=== PATIENT | female | born 1940 | race Caucasian/White ===

== ENCOUNTER 2017-11-09 01:21 | Inpatient (IN) ==
[2017-11-09] MEDS ORDERED: Naloxone 0.4 MG/ML INJ IVP PRN (01:53)
--- NOTE | 2017-11-09 03:35 | Internal Med History&Physical ---
Date of Encounter: 11/09/17 Time of Encounter: 03:15 Assessment and Plan (1) Chest pain Current visit: Yes Status: Acute Precordial chest pain. Likely from rapid A. fib. Now improved. Observation and trend troponins. Telemetry. Control A. fib. Qualifiers: Chest pain type: precordial pain Qualified Code(s): R07.2 - Precordial pain (2) Atrial fibrillation Current visit: Yes Status: Acute A. fib with rapid ventricular response on presentation. Now improved after patient was started on IV Cardizem drip. Currently in sinus rhythm. We will wean off drip and place patient on usual home medications. Monitor with telemetry. High risk for complications due to use of intravenous Cardizem drip. On anticoagulation with Coumadin and INR is therapeutic. Qualifiers: Atrial fibrillation type: paroxysmal Qualified Code(s): I48.0 - Paroxysmal atrial fibrillation (3) Coronary artery disease Current visit: Yes Status: Chronic Patient with history of coronary artery disease and prior CABG. We will resume home medications. Presented with chest pain. Management as above. Qualifiers: Coronary Disease-Associated Artery/Lesion type: [place] artery [place] vs. transplanted heart: [place] heart Associated angina: angina presence unspecified Qualified Code(s): I25.10 - Atherosclerotic heart disease of [place] coronary artery without angina pectoris (4) Diabetes mellitus Current visit: Yes Status: Chronic Patient with history of diabetes. Will place patient on a diabetic diet. Monitor blood sugars. Sliding scale insulin. Qualifiers: Diabetes mellitus type: type 2 Diabetes mellitus complication status: with kidney complications Diabetes mellitus complication detail: with chronic kidney disease Diabetes mellitus jail insulin use: without long term care administrator use Chronic kidney disease stage: stage 3 (moderate) Qualified Code(s): E11.22 - Type 2 diabetes mellitus with diabetic chronic kidney disease; N18.3 - Chronic kidney disease, stage 3 (moderate); N18.3 - Chronic kidney disease, stage 3 (moderate) (5) Essential hypertension Current visit: Yes Status: Acute (6) COPD (chronic obstructive pulmonary disease) Current visit: Yes Status: Chronic Patient with history of COPD. Not in acute exacerbation but patient does have bilateral wheezing. Will treat with bronchodilators Qualifiers: COPD type: unspecified COPD Qualified Code(s): J44.9 - Chronic obstructive pulmonary disease, unspecified (7) DVT prophylaxis Current visit: Yes Status: Acute On Coumadin Internal Medicine - H&P: HPI Chief complaint: Chest pain Admitted From: Emergency Dept ([facility]) Plans for Post Hospital Care: Home History of present illness: Ms. Horne is a 77 year old female patient with history of diabetes mellitus, coronary artery disease status post CABG, atrial fibrillation, hypertension, COPD, presented to the ER at [facility] complaining of chest pain. Her pain began at 4 PM yesterday evening. She also was having palpitations associated with it. She describes the pain as central in location and radiating up her jaw and to both her arms. She describes it as the worst chest pain she has ever had. In the ER she was noted to be in atrial fibrillation with rapid ventricular response. She was given Cardizem intravenously and then started on Cardizem drip with improvement in her heart rate. This also seemed to ease her pain and presently the pain has subsided. She does have chronic cough related to her chronic smoking history. No fever or chills. No nausea or vomiting. No dizziness or lightheadedness. Past Med Surg Social Fam HX - Past Medical History Attestation: Yes The following information was validated with the patient. Medical history: asthma, atrial fibrillation, COPD, coronary artery disease, diabetes, hypertension Psychiatric history: anxiety - Past Surgical History Surgical History: appendectomy, cholecystectomy, coronary bypass (CABG), hysterectomy, pacemaker - Social History Smoking Status: Current every day smoker Packs per day: 0.5 Smokeless Tobacco Status: No Alcohol use: none Drug use: none - Additional Family History Additional family history: Reviewed and found to be noncontributory at this time Internal Medicine - H&P: Meds 3 Allergy/AdvReac Type Severity Reaction Status Date / Time azithromycin [From Zithromax] Allergy Anaphylaxis Verified 11/09/17 02:14 glimepiride Allergy Confusion Verified 11/09/17 02:14 lidocaine [From Lidoderm] Allergy unknown Verified 11/09/17 02:14 Macrolide Antibiotics Allergy unknown Verified 11/09/17 02:14 Sulfa (Sulfonamide Allergy unknown Verified 11/09/17 02:14 Antibiotics) clindamycin AdvReac edema Verified 11/09/17 02:14 fluticasone AdvReac Palpitation Verified 11/09/17 02:14 [From Advair Diskus] s salmeterol AdvReac Palpitation Verified 11/09/17 02:14 [From Advair Diskus] s All Systems PM: A 10-system review of systems was performed and is negative for pertinent findings except as documented above in the HPI. - Constitutional Constitutional: no chills, no fever(s), no night sweats - EENT Eyes: no change in vision, no discharge, no pain, no photophobia Ears: no ear discharge, no ear pain, no tinnitus Nose, mouth and throat: no dysphagia, no nasal discharge, no neck pain, no sore throat - Cardiovascular Cardiovascular ROS IM: no chest pain, no diaphoresis, no dyspnea, no lightheadedness, no palpitations, no syncope - Respiratory Respiratory: no cough, no dyspnea, no wheezing, no excessive phlegm production - Gastrointestinal Gastrointestinal: no abdominal pain, no diarrhea, no hematemesis, no hematochezia, no melena, no nausea, no vomiting - Genitourinary Genitourinary: no change in urinary stream, no dysuria, no flank pain, no hematuria - Musculoskeletal Musculoskeletal ROS IM: no numbness, no tingling - Integumentary Integumentary IM: no rash, no unusual bruising - Neurological Neurological ROS: no confusion, no convulsions, no focal weakness, no numbness, no tingling, no tremor(s) - Hematologic/Lymphatic Hematologic/Lymphatic: no easy bruising - Constitutional Vitals: Temp Pulse Resp BP Pulse Ox 98.6 F 120 18 91/73 100 11/09/17 01:53 11/09/17 01:53 11/09/17 01:53 11/09/17 01:53 11/09/17 01:53 General appearance: Present: cooperative, A&O X 3, answers questions appropriately - Neck Neck exam general surgery: Present: supple, trachea midline. Absent: lymphadenopathy - Respiratory Respiratory exam: Present: prolonged expiratory phase, wheezes. Absent: accessory muscle use, rales, rhonchi - Cardiovascular Cardiovascular exam: Present: RRR, +S1, +S2. Absent: diastolic murmur, gallop, rubs, systolic murmur - GI/Abdominal GI/Abdominal exam: Present: normal bowel sounds, soft, no peritoneal signs. Absent: distended, tenderness - Extremities Exam Extremities exam: Present: warm, radial pulses palpable and symmetrical. Absent : calf tenderness, cyanotic, pedal edema - Neurological Exam Neurological exam: Present: CN II-XII intact, oriented X3, no focal deficits. Absent: pronater drift, facial droop, speech deficit Internal Med - H&P Results - Labs Labs: INR 2.4, potassium 3.4, creatinine 1.9, troponin 0.085 - EKG Data EKG comments: 11/09/17 03:49 Atrial fibrillation with right bundle-branch block
[2017-11-09] MEDS ORDERED: D5% in Water 1,000 ML IVC PRN (03:54)
[2017-11-09] MEDS ORDERED: Dextrose Gel 15 GM/37.5 ML TUBE PO PRN ×2 (03:54)
[2017-11-09] MEDS ORDERED: *HR* Dextrose 50 % in Water (Syg) 50 ML SYRINGE IVP PRN (03:54)
[2017-11-09 04:00] LABS: Basophils % 0.2 %; Eosinophils # 0.1 K/mcL (0.0-0.6); Eosinophils % 0.8 %; Hemoglobin 11.6 g/dL (11.5-15.4); Immature Granulocytes % 0.3 % (0-4); Lymphocytes # 2.5 K/mcL (0.6-4.6); Lymphocytes % 26.6 %; Mean Corpuscular HGB Conc 32.2 g/dL (31.6-35.5); Mean Corpuscular Hemoglobin 27.8 pg (28.0-33.3); Mean Corpuscular Volume 86.1 fL (83.0-100.0); Mean Platelet Volume 9.5 fL (9.4-12.4); Monocytes # 0.6 K/mcL (0.0-1.3); Monocytes % 6.1 %; Neutrophils # 6.2 K/mcL (1.6-8.9); Platelet Count 275 K/mcL (140-400); Red Blood Count 4.18 M/mcL (3.82-4.97); Red Cell Distribution Width 15.7 % (11.5-14.5)
[2017-11-09 04:08] LABS: INR 2.6; Prothrombin Time 29.1 Seconds (9.4-12.1)
[2017-11-09 04:10] LABS: Hemoglobin A1C 5.4 %
[2017-11-09] MEDS ORDERED: Ipratropium/Albuterol Neb 3 ML IH PRN (04:12)
[2017-11-09 05:10] LABS: Calcium 8.4 mg/dL (8.6-10.3); Potassium 3.5 mEq/L (3.5-5.1)
[2017-11-09] MEDS: Tiotropium 18 MCG inhalation IH SCH (08:09)
[2017-11-09] MEDS: Benzonatate 100 MG CAPSULE PO SCH ×3 (09:07→23:05)
[2017-11-09] MEDS: Loratadine 10 MG TABLET PO SCH (09:07)
[2017-11-09] MEDS: Insulin LISPRO 300 UNITS/3 ML VIAL SQ SCH ×4 (09:07→23:02)
--- NOTE | 2017-11-09 09:58 | Electrocardiograph Report ---
[place] [id number] Test Date: 2017-11-09 Pat Name: Danielle Horne Department: 111 Room: 2NE24 Gender: F Residential Care Facility Manager: RAW : 1940 Requested By: Ishan Lubin Order Number: [id number] Reading MD: Zaria Del Real Measurements Intervals [place] Rate: 60 P: 119 DE: 151 QRS: -54 QRSD: 121 T: 82 QT: 442 QTc: 444 Interpretive Statements SINUS RHYTHM POSSIBLE RIGHT VENTRICULAR CONDUCTION DELAY LEFT ANTERIOR FASCICULAR BLOCK LEFT VENTRICULAR HYPERTROPHY AND ST-T CHANGE INFERIOR MYOCARDIAL INFARCTION, OF INDETERMINATE AGE WITH POSTERIOR EXTENSION Electronically Signed On 11-09-2017 9:57:31 EST by Zaria Del Real
[2017-11-09] MEDS: Ipratropium/Albuterol Neb 3 ML IH SCH ×3 (10:11→20:33)
[2017-11-09] MEDS: Isosorbide MONOnitrate (24 HR) 30 MG TAB.ER.24H PO SCH (10:51)
[2017-11-09] MEDS: Metoprolol XL (24 HR) Succ 25 MG TAB.ER.24H PO SCH ×2 (10:51→21:35)
--- NOTE | 2017-11-09 11:32 | Cardiology Consult Note ---
<Yuly Keenan Marilyn - Last Filed: 11/09/17 11:49> Date of Encounter: 11/09/17 Time of Encounter: 10:30 Assessment and Plan (1) NSTEMI (non-ST elevated myocardial infarction) Status: Acute Troponin 0.085, now 4.68. Ischemic ECG changes. Patient reports typical chest pain symptoms prior to admission, now pain free. 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 Check echocardiogram. No heparin gtt due to therapeutic INR. Patient not a candidate for cardiac rehab at this time. Continue plavix, nitrates, statin, and betablocker. Will continue to follow. (2) Atrial fibrillation Status: Acute Hx of paroxysmal atrial fibrillation, pt reports was diagnosed 8 years ago. On coumadin for AC. Episode of RVR at [facility] ED, now in NSR. Continue betablocker. Goal INR 2-3, recommend pharmacy to dose as inpt. Continue coumadin for now as patient is declining LHC. Qualifiers: Atrial fibrillation type: paroxysmal Qualified Code(s): I48.0 - Paroxysmal atrial fibrillation (3) Coronary artery disease Status: Chronic Hx of CAD s/p CABG. Patient reports PCI (x total LHC) between Jul- at [facility] and [place]. Request records. Asa, statin, betablocker. Qualifiers: Coronary Disease-Associated Artery/Lesion type: [place] artery [place] vs. transplanted heart: [place] heart Associated angina: angina presence unspecified Qualified Code(s): I25.10 - Atherosclerotic heart disease of [place] coronary artery without angina pectoris Discussion w patient/family: The assessment and plan as outlined above was discussed with the patient and/or family members who expressed understanding and agreement. All questions were answered. Thank you for involving us in the care of your patient. Please call with any questions. History of Present Illness Consult date: 11/09/17 Requesting physician: Ishan Lubin Consult reason: NSTEMI Chief complaint: Chest pain, afib History of present illness: Ms. Horne is a 77 year old female with PMHx significant for DMII, CAD s/p CABG ,PCI, AF (Coumadin), HTN, COPD (home o2 4-5 l/m), current smoker, PPM, and CVA who presented to [facility] ED with complaints of palpitations associated with chest pressure with radiation down bilateral arms and neck. Patient reports she felt tired and fatigued for 3 days prior to event and "felt like afib was coming on." She was then transferred to [facility] for further evaluation. Upon arrival to ED she was in atrial fibrillation with RVR and started on IV cardizem gtt. She is pain free upon exam and is in NSR. Past Med Surg Social Fam HX - Past Medical History Attestation: Yes The following information was validated with the patient. Source: patient Medical history: asthma, atrial fibrillation, COPD, coronary artery disease, diabetes, hypertension Psychiatric history: anxiety - Past Surgical History Surgical History: angioplasty/stent, appendectomy, cholecystectomy, coronary bypass (CABG), hysterectomy, pacemaker - Social History Smoking Status: Current every day smoker Packs per day: 0.5 Smokeless Tobacco Status: No Alcohol use: none Drug use: none Medications and Allergies Atorvastatin [Lipitor] 40 mg PO DAILY 11/09/17 [History] Benzonatate [Tessalon] 100 mg PO TID PRN 11/09/17 [History] Clopidogrel [Plavix] 75 mg PO DAILY 11/09/17 [History] Dicyclomine [Bentyl] 10 mg PO QID 11/09/17 [History] Esomeprazole Magnesium [Nexium 24Hr] 40 mg PO DAILY 11/09/17 [History] Ferrous Sulfate [Iron] 325 mg PO DAILY 11/09/17 [History] Fluticasone Propionate Nasal [Flonase] 1 spr NS DAILY 11/09/17 [History] Fluticasone Propionate [Flovent Diskus] 1 puff IH BID 11/09/17 [History] Furosemide [Lasix] 40 mg PO DAILY 11/09/17 [History] HYDROcodone/Acet 5/325 mg [[place] 5-325 mg] 1 tab PO BID PRN 11/09/17 [History] Ipratropium/Albuterol Neb [Duoneb] 3 ml IH Q6HR 11/09/17 [History] Loratadine [Allergy Relief] 10 mg PO DAILY 11/09/17 [History] Metformin HCl [Fortamet] 500 mg PO BID 11/09/17 [History] Montelukast [Singulair] 10 mg PO DAILY 11/09/17 [History] Nitroglycerin [Nitrostat] 0.4 mg SL Q5M PRN 11/09/17 [History] Roflumilast [Daliresp] 500 mcg PO DAILY 11/09/17 [History] Tiotropium [Spiriva] 18 mcg IH DAILY 11/09/17 [History] Warfarin [Coumadin] 2.5 mg PO [id number] 11/09/17 [History] Warfarin [Coumadin] 5 mg PO SUTH 11/09/17 [History] GuaiFENesin Liq [Robitussin Liq] 200 mg PO Q6HR PRN #15 udc 11/12/17 [Rx] Isosorbide MONOnitrate (24 HR) [Imdur] 60 mg PO DAILY #60 tab.er.24h 11/12/17 [ Rx] LORazepam [Ativan] 0.5 mg PO TID PRN 5 Days #15 tablet 11/12/17 [Rx] Metoprolol XL (24 HR) Succ [Toprol Xl] 50 mg PO BID #60 tab.er.24h 11/12/17 [Rx] amLODIPine [Norvasc] 5 mg PO DAILY #30 tablet 11/12/17 [Rx] hydrALAZINE [HydrALAZINE] 25 mg PO Q8HR #90 tablet 11/12/17 [Rx] predniSONE [PredniSONE] See Taper PO TAPER #39 tablet 11/12/17 [Rx] 3 Allergy/AdvReac Type Severity Reaction Status Date / Time azithromycin [From Zithromax] Allergy Anaphylaxis Verified 11/09/17 13:41 glimepiride Allergy Confusion Verified 11/09/17 13:41 lidocaine [From Lidoderm] Allergy unknown Verified 11/09/17 13:41 Macrolide Antibiotics Allergy unknown Verified 11/09/17 13:41 Sulfa (Sulfonamide Allergy unknown Verified 11/09/17 13:41 Antibiotics) clindamycin AdvReac edema Verified 11/09/17 13:41 fluticasone AdvReac Palpitation Verified 11/09/17 13:41 [From Advair Diskus] s salmeterol AdvReac Palpitation Verified 11/09/17 13:41 [From Advair Diskus] s All Systems Review: A 10-system review of systems was performed and is negative for pertinent findings except as documented above in the HPI. - Cardiovascular Cardiovascular: as per HPI Physical Examination Vital Signs, Last 4 Hours Temp Pulse Resp BP Pulse Ox 11/09/17 11:17 98.2 F 75 16 160/106 92 11/09/17 10:15 16 98 11/09/17 09:18 47 95 146/59 95 General: Conversant, No Apparent Distress HEENT: Atraumatic, Normocephaly Cardiac: Reg Rate and Rhythm, Normal S1 and S2 Lungs: Other (coarse breath sounds throughout) Neuro: Alert and responsive Abdomen: Soft Skin: No rashes noted on visualized skin Musculoskeletal: No Chest Wall Tenderness Extremities: Other (BLE edema, L>R. ) Results 11/09/17 03:49 11/09/17 03:49 Lab Results 11/09/17 11/09/17 11/09/17 03:49 03:49 03:49 WBC 9.5 Hgb 11.6 Hct 36.0 Plt Count 275 INR 2.6 Sodium 137 Potassium 3.5 Chloride 98 Carbon Dioxide 30 H BUN 44 H Creatinine 1.64 H Glucose 110 H Calcium 8.4 L Troponin I 11/09/17 11/09/17 03:49 10:11 WBC Hgb Hct Plt Count INR Sodium Potassium Chloride Carbon Dioxide BUN Creatinine Glucose Calcium Troponin I 4.68 H* 4.42 H* Active Medications Hydrocodone Bitart/Acetaminophen ([place] 5-325 Mg) 1 tab PO Q8HR PRN PRN Reason: Pain Stop: 05/11/18 10:57 Albuterol/Ipratropium (Duoneb) 3 ml IH [id number] PRN; Protocol PRN Reason: Shortness Of Breath/Wheezing Stop: 05/11/18 04:13 Albuterol/Ipratropium (Duoneb) 3 ml IH [id number] OSVALDO Stop: 05/11/18 10:01 Last Admin: 11/09/17 10:11 Dose: 3 ml Atorvastatin Calcium (Lipitor) 40 mg PO QPM OSVALDO Stop: 05/11/18 18:01 Benzonatate (Tessalon) 100 mg PO TID OSVALDO Stop: 05/11/18 09:01 Last Admin: 11/09/17 09:07 Dose: 100 mg Clopidogrel Bisulfate (Plavix) 75 mg PO DAILY OSVALDO Stop: 05/11/18 09:01 Last Admin: 11/09/17 09:07 Dose: 75 mg Dextrose/Water (Dextrose 50% (Syg)) 25 ml IVP AD PRN PRN Reason: Hypoglycemia Stop: 05/11/18 03:55 Dicyclomine HCl (Bentyl) 10 mg PO QID [facility] Stop: 05/11/18 09:01 Last Admin: 11/09/17 09:07 Dose: 10 mg Ferrous Sulfate (Ferrous Sulfate) 325 mg PO DAILY OSVALDO Stop: 05/11/18 09:01 Last Admin: 11/09/17 09:07 Dose: 325 mg Diltiazem HCl 125 mg/ Sodium (Chloride) 125 mls @ 5 mls/hr IVC .Q24H OSVALDO; 5 MG/ HR PRN Reason: Protocol Stop: 05/11/18 02:01 Last Admin: 11/09/17 02:32 Dose: 5 mg/hr, 5 mls/hr Dextrose (Dextrose 5%) 1,000 mls @ 100 mls/hr IVC .Q10H PRN PRN Reason: HYPOGLYCEMIA Stop: 05/11/18 03:55 Insulin Human Lispro (Humalog) 0 units SQ HS OSVALDO PRN Reason: Protocol Stop: 05/11/18 21:01 Insulin Human Lispro (Humalog) 0 units SQ TIDAC OSVALDO PRN Reason: Protocol Stop: 05/11/18 07:31 Last Admin: 11/09/17 09:07 Dose: 2 units Isosorbide Mononitrate (Imdur) 30 mg PO DAILY [facility] Stop: 05/11/18 09:01 Last Admin: 11/09/17 10:51 Dose: 30 mg Loratadine (Claritin) 10 mg PO DAILY [facility] PRN Reason: Protocol Stop: 05/11/18 09:01 Last Admin: 11/09/17 09:07 Dose: 10 mg Metoprolol Succinate (Toprol Xl) 25 mg PO BID [facility] Stop: 05/11/18 09:01 Last Admin: 11/09/17 10:51 Dose: Not Given Montelukast Sodium (Singulair) 10 mg PO QPM [facility] Stop: 05/11/18 18:01 Naloxone HCl (Narcan) 0.4 mg IVP Q2MIN PRN PRN Reason: Opioid Reversal Stop: 05/11/18 01:54 Pharmacy Profile Note (Patient Taking Own Medication) 1 each PO DAILY [facility] Stop: 05/11/18 09:01 Last Admin: 11/09/17 09:28 Dose: Not Given Tiotropium [place] (Spiriva) 18 mcg IH DAILY [facility] Stop: 05/11/18 09:01 Last Admin: 11/09/17 08:09 Dose: Not Given Warfarin Sodium (Coumadin Perpt) 1 each PO DAILY@1800 PRN PRN Reason: SEE COMMENTS Stop: 05/11/18 18:01 Warfarin Sodium (Coumadin) 2.5 mg PO 1800 ONE Stop: 11/09/17 18:01 - Imaging and Cardiology Other Results: 12 hour tele: avg HR=62 paced. - EKG Interpretation EKG results cardiology: personally reviewed Consult Discharge Plan - Plan Instructions: Lorazepam (By mouth), Prednisone (By mouth), Hydralazine (By mouth), Amlodipine (By mouth), Isosorbide Mononitrate (By mouth), Myocardial Infarction (DC), Atrial Fibrillation (DC), Chronic Obstructive Pulmonary Disease (DC) Referrals: Richie Rankin [Primary Care Provider] - 11/25/17 11:15 am Prescriptions: GuaiFENesin Liq [Robitussin Liq] 200 mg PO Q6HR PRN #15 udc PRN Reason: Cough hydrALAZINE [HydrALAZINE] 25 mg PO Q8HR #90 tablet amLODIPine [Norvasc] 5 mg PO DAILY #30 tablet Isosorbide MONOnitrate (24 HR) [Imdur] 60 mg PO DAILY #60 tab.er.24h LORazepam [Ativan] 0.5 mg PO TID PRN 5 Days #15 tablet PRN Reason: Anxiety Metoprolol XL (24 HR) Succ [Toprol Xl] 50 mg PO BID #60 tab.er.24h predniSONE [PredniSONE] See Taper PO TAPER #39 tablet <Anoop Means - Last Filed: 11/14/17 17:52> Date of Encounter: 11/09/17 Time of Encounter: 18:25 - Attending Attestation I have personally performed a face to face evaluation on this patient. I have reviewed and agree with the care plan. History and Exam by me shows: CC: Chest pain Pt presented to ER at [facility] with complaints of palpitations, and chest pressure. Pt reports sudden onset of 7/10 chest pain, occurred at rest, lasted twenty to thirty minutes, associated with heart racing, resolved spontaneously approx 11/06/17. She has felt weak and tired since that event. She has noted her heart racing and skipping on and off over the last three days, reports thinks she may have gone in and out of A fib. On initial presentation to ER, was found to be in A fib with RVR, heart rates in the 150s, symptomatic, started on IV diltiazem with control of her heart rates and resolution of her symtoms. She is now pain free, reports heart racing has resolved. PE: Reviewed, agreed as above IMP: 1. Chest pain, with elevated troponin up to 4.68, consistent with NSTEMI. Discussed with pt and family, recommend LHC/poss intervention if indicated, pt declines, wishes to persue medical tx only, due to stroke associated with LHC in 08/2017. Will maximize medical tx, discussed with pt may reconsider if troponins continue to climb or if has new EKG changes. 2. A fib with RVR, now controlled on IV dilt, will transition to PO over next several hours, if heart rate remains controlled. Assessment and Plan Discussion w patient/family: The assessment and plan as outlined above was discussed with the patient and/or family members who expressed understanding and agreement. All questions were answered. Thank you for involving us in the care of your patient. Please call with any questions. History of Present Illness History of present illness: Ms. Horne is a 77 year old female All Systems Review: A 10-system review of systems was performed and is negative for pertinent findings except as documented above in the HPI. Results 11/12/17 06:40 11/12/17 06:40
--- NOTE | 2017-11-09 12:42 | Event Note ---
Date of Encounter: 11/09/17 Time of Encounter: 10:30 Ms Horne was admitted earlier this AM for rapid a fib and acute NSTEMI. Pt converted to NSR after Cardizem drip and she is now sinus jazz/paced rhythm. Currently she feels OK. She has refused heart cath and is to have medical management at this time. Exam Alert and comfortable at this time. Heart rate varies 39-60s Mucus membranes dry Heart jazz Lungs with some diffuse wheeze noted Abd soft I/P 1. Acute NSTEMI - medical management 2. Parox a fib - appears to be in sinus now and paced at times 3. Probable COPD exac - add steroids 4. Tobacco abuse
[2017-11-09] MEDS: predniSONE 20 MG TABLET PO SCH (15:54)
[2017-11-09] MEDS ORDERED: Warfarin perPT PO PRN (18:00)
[2017-11-09] MEDS ORDERED: *HR* Warfarin 2.5 MG TABLET PO ONE (18:00)
[2017-11-09] MEDS: *HR* HYDROcodone/Acet 5/325 mg TABLET PO PRN (18:58)
[2017-11-09] MEDS ORDERED: Nitroglycerin 0.4 MG TAB.SUBL SL ONE (21:31)
[2017-11-09] MEDS ORDERED: *HR* Metoprolol 5 MG/5 ML VIAL IVP ONE ×2 (21:34→21:35)
[2017-11-09] MEDS ORDERED: 0.9 % Sodium Chloride 250 ML ONE (22:05)
[2017-11-09] MEDS ORDERED: 0.9 % Sodium Chloride 250 ML IVC ONE (22:13)
--- NOTE | 2017-11-09 22:22 | Event Note ---
Date of Encounter: 11/09/17 Time of Encounter: 22:00 Rapid response called as patient's heart rate was in the 170s to 190s. I arrived at the patient's bedside and the patient was complaining of chest pain and was in A. fib with RVR with heart rate ranging between 170 and 190. Gave 10 mg of IV Lopressor with no significant improvement in her heart rate. When given 10 mg of Cardizem intravenously with improvement in her heart rate. Blood pressure was checked initially and patient was hypertensive but post Lopressor and Cardizem she became hypotensive. We will give 250 mL normal saline bolus and initiate Cardizem drip once the pressure improves. If she persistently is hypotensive, will place her on amiodarone instead. Patient has been anticoagulated with Coumadin and her INR is therapeutic.
[2017-11-09] MEDS ORDERED: 0.9 % Sodium Chloride 1,000 ML ONE (22:39)
[2017-11-09] MEDS ORDERED: 0.9 % Sodium Chloride 1,000 ML IVC ONE (22:40)
[2017-11-09] MEDS ORDERED: Amiodarone Premix 360 MG/200 ML BAG IVC ONE (23:30)
[2017-11-10] MEDS: Melatonin 3 MG TABLET PO PRN ×2 (00:02→20:07)
[2017-11-10] MEDS: Ipratropium/Albuterol Neb 3 ML IH SCH ×4 (04:55→22:14)
[2017-11-10 05:04] LABS: Hematocrit 30.9 % (35.3-44.9); Mean Corpuscular HGB Conc 32.4 g/dL (31.6-35.5); Mean Corpuscular Hemoglobin 27.8 pg (28.0-33.3); Mean Corpuscular Volume 85.8 fL (83.0-100.0); Mean Platelet Volume 10.1 fL (9.4-12.4); Platelet Count 262 K/mcL (140-400); Red Cell Distribution Width 15.7 % (11.5-14.5)
[2017-11-10 05:05] LABS: INR 1.9; Prothrombin Time 20.3 Seconds (9.4-12.1)
[2017-11-10 05:26] LABS: Calcium 8.4 mg/dL (8.6-10.3); Magnesium 1.3 mg/dL (1.6-2.6)
[2017-11-10] MEDS ORDERED: Amiodarone Premix 360 MG/200 ML BAG IVC SCH (05:30)
[2017-11-10] MEDS: Insulin LISPRO 300 UNITS/3 ML VIAL SQ SCH ×4 (07:54→20:57)
[2017-11-10] MEDS: predniSONE 20 MG TABLET PO SCH (07:55)
[2017-11-10] MEDS: Loratadine 10 MG TABLET PO SCH (07:55)
[2017-11-10] MEDS: Benzonatate 100 MG CAPSULE PO SCH ×3 (07:55→20:07)
[2017-11-10] MEDS: Isosorbide MONOnitrate (24 HR) 30 MG TAB.ER.24H PO SCH (07:55)
[2017-11-10] MEDS: *HR* HYDROcodone/Acet 5/325 mg TABLET PO PRN ×2 (07:56→21:46)
--- NOTE | 2017-11-10 09:42 | Internal Med Progress Note ---
Date of Encounter: 11/10/17 Time of Encounter: 09:30 - Assessment and plan (1) NSTEMI (non-ST elevated myocardial infarction) Current Visit: Yes Status: Acute Assessment and plan: Pt refusing cardiac cath and elects for medical management. Medications adjusted per cardiology She is symptom free at this time. (2) Atrial fibrillation Current Visit: Yes Status: Acute Assessment and plan: Continues to have episodes of tachycardia. Spontaneously converts and has pacer for back up. Meds adjusted today per cardiology On coumadin. Qualifiers: Atrial fibrillation type: paroxysmal Qualified Code(s): I48.0 - Paroxysmal atrial fibrillation (3) COPD (chronic obstructive pulmonary disease) Current Visit: Yes Status: Acute Assessment and plan: Currently on PO steroids, oxygen and aerosols. Continue to wean as able Qualifiers: COPD type: COPD with acute exacerbation Qualified Code(s): J44.1 - Chronic obstructive pulmonary disease with (acute) exacerbation (4) Anxiety about health Current Visit: Yes Status: Acute Assessment and plan: PRN Ativan added Trazodone started at night to help with sleep as well. 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 Continue meds. (7) Tobacco abuse Current Visit: Yes Status: Chronic Assessment and plan: Cessation counselling. (8) Coronary artery disease Current Visit: Yes Status: Chronic Assessment and plan: Chronic issue. Qualifiers: Coronary Disease-Associated Artery/Lesion type: [place] artery [place] vs. transplanted heart: [place] heart Associated angina: without angina Qualified Code(s): I25.10 - Atherosclerotic heart disease of [place] coronary artery without angina pectoris - Subjective Interval history: Ms Horne is currently admitted for acute NSTEMI and rapid a fib. She remains moderate to high risk due to potential for worsening clinical status. Ms Horne had rapid response for rapid a fib last night. She converted and now her rate varies and is paced. She is complaining of anxiety and difficulty sleeping. No pain. No dyspnea currently. No GI issues. She had this pacemaker placed at [facility] in September. - Constitutional Vitals: Temp Pulse Resp BP Pulse Ox 97.7 F 57 20 155/72 94 11/10/17 07:20 11/10/17 08:07 11/10/17 07:20 11/10/17 08:07 11/10/17 08:07 General appearance: Present: cooperative, A&O X 3, answers questions appropriately - Head Head exam: Present: atraumatic, normocephalic - Eye Eye exam: Present: conjuntiva pink - Respiratory Respiratory exam: Present: prolonged expiratory phase, wheezes - Cardiovascular Cardiovascular exam: Present: irregular rhythm. Absent: tachycardia - GI/Abdominal GI/Abdominal exam: Present: soft. Absent: tenderness - Extremities Exam Extremities exam: Present: warm. Absent: tenderness - Neurological Exam Neurological exam: Present: alert, oriented X3 - Skin Skin exam: Present: dry, excoriation, warm Internal Medicine: Result - Labs CBC & Chem 7: 11/10/17 04:35 11/10/17 04:35 Labs: Short CBC 11/10/17 Range/Units 04:35 WBC 7.5 (4.3-11.1) K/mcL Hgb 10.0 L D (11.5-15.4) g/dL Hct 30.9 L (35.3-44.9) % Plt Count 262 (140-400) K/mcL BMP 11/10/17 04:35 Sodium 134 L Potassium 4.0 Chloride 100 Carbon Dioxide 27 BUN 41 H Creatinine 1.66 H Glucose 136 H Calcium 8.4 L Cardiac Enzymes 11/09/17 11/09/17 Range/Units 10:11 21:53 Troponin I 4.42 H* 3.04 H* (< 0.04) ng/mL - ABG Interpretation ABG results: PT/INR, D-dimer PT 20.3 Seconds (9.4-12.1) H 11/10/17 04:35 - VTE Reasons for not Prescribing Prophylaxis: Not indicated-Anticoagulated or INR therapeutic Documentation of Mechanical Device: Intermittent pneumatic compression device Consult Discharge Plan - Plan Referrals: Richie Rankin [Primary Care Provider] -
--- NOTE | 2017-11-10 09:53 | Cardiology Progress Note ---
Date of Encounter: 11/10/17 Time of Encounter: 08:30 Assessment and Plan (1) NSTEMI (non-ST elevated myocardial infarction) Current Visit: Yes Status: Acute Troponin 0.085, now 4.68. Ischemic ECG changes. Patient reports typical chest pain symptoms prior to admission, now pain free. 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 TTE pending. No heparin gtt due to therapeutic INR. Patient not a candidate for cardiac rehab at this time. Continue plavix, nitrates, statin, and betablocker. Will increase imdur today. Will continue to follow. (2) Atrial fibrillation Current Visit: Yes Status: Acute Hx of paroxysmal atrial fibrillation, pt reports was diagnosed 8 years ago. On coumadin for AC. Episode of RVR at [facility] [place] ED and again yesterday evening. RR called, patient started on cardizem gtt (now d/c'ed) and transferred to . NSR upon exam, BP stable. Will increase Toprol XL to 50 mg BID. Goal INR 2-3, recommend pharmacy to dose as inpt. Continue coumadin for now as patient is declining LHC. Qualifiers: Atrial fibrillation type: paroxysmal Qualified Code(s): I48.0 - Paroxysmal atrial fibrillation (3) Coronary artery disease Current Visit: Yes Status: Chronic Hx of CAD s/p CABG. Patient reports PCI (x total LHC) between Jul- at [facility] [place] and [place]. Request records. Asa, statin, betablocker. Qualifiers: Coronary Disease-Associated Artery/Lesion type: [place] artery [place] vs. transplanted heart: [place] heart Associated angina: angina presence unspecified Qualified Code(s): I25.10 - Atherosclerotic heart disease of [place] coronary artery without angina pectoris Discussion w patient/family: The assessment and plan as outlined above was discussed with the patient and/or family members who expressed understanding and agreement. All questions were answered. Thank you for involving us in the care of your patient. Please call with any questions. The patient was discussed and reviewed with Dr. Means; changes to be made accordingly. Subjective Principal diagnosis: NSTEMI Interval history: Seen and examined. Episode of afib with RVR overnight, required transfer to . Patient reports chest pain with radiation down arms/neck while in RVR. Objective Vital Signs, Last 4 Hours Temp Pulse Resp BP Pulse Ox 11/10/17 08:07 57 155/72 94 11/10/17 07:33 56 145/54 11/10/17 07:20 97.7 F 64 20 145/54 97 General: Conversant, No Apparent Distress HEENT: Atraumatic, Normocephaly, Mucus Membranes Moist Cardiac: Reg Rate and Rhythm, Normal S1 and S2 Lungs: Other (coarse breath sounds/wheezing throughout) Neuro: Alert and responsive Abdomen: Soft Skin: No rashes noted on visualized skin Musculoskeletal: No Chest Wall Tenderness Extremities: Normal Pulses, Other (mild BLE edema) Results 11/10/17 04:35 11/10/17 04:35 Lab Results 11/09/17 11/09/17 11/10/17 10:11 21:53 04:35 WBC Hgb Hct Plt Count INR 1.9 Sodium Potassium Chloride Carbon Dioxide BUN Creatinine Glucose Calcium Magnesium Troponin I 4.42 H* 3.04 H* 11/10/17 11/10/17 04:35 04:35 WBC 7.5 Hgb 10.0 L D Hct 30.9 L Plt Count 262 INR Sodium 134 L Potassium 4.0 Chloride 100 Carbon Dioxide 27 BUN 41 H Creatinine 1.66 H Glucose 136 H Calcium 8.4 L Magnesium 1.3 L Troponin I Active Medications Hydrocodone Bitart/Acetaminophen ([place] 5-325 Mg) 1 tab PO Q8HR PRN PRN Reason: Pain Stop: 05/11/18 10:57 Last Admin: 11/10/17 07:56 Dose: 1 tab Albuterol/Ipratropium (Duoneb) 3 ml IH [id number] PRN; Protocol PRN Reason: Shortness Of Breath/Wheezing Stop: 05/11/18 04:13 Albuterol/Ipratropium (Duoneb) 3 ml IH [id number] OSVALDO Stop: 05/11/18 10:01 Last Admin: 11/10/17 04:55 Dose: 3 ml Atorvastatin Calcium (Lipitor) 40 mg PO QPM OSVALDO Stop: 05/11/18 18:01 Last Admin: 11/09/17 18:58 Dose: 40 mg Benzonatate (Tessalon) 100 mg PO TID OSVALDO Stop: 05/11/18 09:01 Last Admin: 11/10/17 07:55 Dose: 100 mg Clopidogrel Bisulfate (Plavix) 75 mg PO DAILY ON LICENSE OF [facility] Stop: 05/11/18 09:01 Last Admin: 11/10/17 07:55 Dose: 75 mg Dextrose/Water (Dextrose 50% (Syg)) 25 ml IVP AD PRN PRN Reason: Hypoglycemia Stop: 05/11/18 03:55 Dicyclomine HCl (Bentyl) 10 mg PO QID OSVALDO Stop: 05/11/18 09:01 Last Admin: 11/10/17 07:55 Dose: 10 mg Ferrous Sulfate (Ferrous Sulfate) 325 mg PO DAILY ON LICENSE OF [facility] Stop: 05/11/18 09:01 Last Admin: 11/10/17 07:55 Dose: 325 mg Glucagon (Glucagen) 1 mg IM ONCE PRN PRN Reason: Hypoglycemia Stop: 05/11/18 03:55 Glucose (Gluctose) 15 gm PO ONCE PRN PRN Reason: Hypoglycemia Stop: 05/11/18 03:55 Glucose (Gluctose) 30 gm PO ONCE PRN PRN Reason: Hypoglycemia Stop: 05/11/18 03:55 Guaifenesin (Mucinex) 600 mg PO BID PRN PRN Reason: Congestion Stop: 05/11/18 13:21 Hydralazine HCl (Hydralazine) 10 mg IVP Q6HR PRN PRN Reason: Hypertension Stop: 05/12/18 06:04 Last Admin: 11/10/17 06:34 Dose: 10 mg Dextrose (Dextrose 5%) 1,000 mls @ 100 mls/hr IVC .Q10H PRN PRN Reason: HYPOGLYCEMIA Stop: 05/11/18 03:55 Insulin Human Lispro (Humalog) 0 units SQ HS ON LICENSE OF [facility] PRN Reason: Protocol Stop: 05/11/18 21:01 Last Admin: 11/09/17 23:02 Dose: 3 units Insulin Human Lispro (Humalog) 0 units SQ TIDAC ON LICENSE OF [facility] PRN Reason: Protocol Stop: 05/11/18 07:31 Last Admin: 11/10/17 07:54 Dose: Not Given Isosorbide Mononitrate (Imdur) 30 mg PO DAILY ON LICENSE OF [facility] Stop: 05/11/18 09:01 Last Admin: 11/10/17 07:55 Dose: 30 mg Loratadine (Claritin) 10 mg PO DAILY ON LICENSE OF [facility] PRN Reason: Protocol Stop: 05/11/18 09:01 Last Admin: 11/10/17 07:55 Dose: 10 mg Lorazepam (Ativan) 0.5 mg PO TID PRN PRN Reason: Anxiety Stop: 05/12/18 09:44 Melatonin (Melatonin) 3 mg PO HS PRN PRN Reason: Insomnia Stop: 05/11/18 21:36 Last Admin: 11/10/17 00:02 Dose: 3 mg Metoprolol Succinate (Toprol Xl) 50 mg PO BID OSVALDO Stop: 05/12/18 09:01 Montelukast Sodium (Singulair) 10 mg PO QPM OSVALDO Stop: 05/11/18 18:01 Last Admin: 11/09/17 18:58 Dose: 10 mg Naloxone HCl (Narcan) 0.4 mg IVP Q2MIN PRN PRN Reason: Opioid Reversal Stop: 05/11/18 01:54 Pharmacy Profile Note (Patient Taking Own Medication) 1 each PO DAILY OSVALDO Stop: 05/11/18 09:01 Last Admin: 11/10/17 08:17 Dose: Not Given Prednisone (Prednisone) 40 mg PO DAILY OSVALDO Stop: 11/14/17 13:31 Last Admin: 11/10/17 07:55 Dose: 40 mg Senna/Docusate Sodium (Senna Plus) 1 each PO BID OSVALDO PRN Reason: Protocol Stop: 05/12/18 09:46 Tiotropium [place] (Spiriva) 18 mcg IH DAILY OSVALDO Stop: 05/11/18 09:01 Last Admin: 11/09/17 08:09 Dose: Not Given Trazodone HCl (Trazodone) 25 mg PO HS ON LICENSE OF [facility] Stop: 05/12/18 21:01 Warfarin Sodium (Coumadin Perpt) 1 each PO DAILY@1800 PRN PRN Reason: SEE COMMENTS Stop: 05/11/18 18:01 Warfarin Sodium (Coumadin) 2.5 mg PO 1800 ONE Stop: 11/10/17 18:01 - Imaging and Cardiology Echo: pending - EKG Interpretation EKG results cardiology: personally reviewed - VTE Reasons for not Prescribing Prophylaxis: Not indicated-Anticoagulated or INR therapeutic Documentation of Mechanical Device: Intermittent pneumatic compression device Consult Discharge Plan - Plan Referrals: Richie Rankin [Primary Care Provider] -
[2017-11-10] MEDS ORDERED: Isosorbide MONOnitrate (24 HR) 30 MG TAB.ER.24H PO ONE (10:00)
[2017-11-10] MEDS: Sennosides/Docusate Sodium TABLET PO SCH ×2 (10:09→20:08)
[2017-11-10] MEDS: *HR* LORazepam 0.5 MG TABLET PO PRN ×2 (10:09→20:09)
[2017-11-10] MEDS: Metoprolol XL (24 HR) Succ 25 MG TAB.ER.24H PO SCH ×2 (10:10→20:07)
[2017-11-10] MEDS: Tiotropium 18 MCG inhalation IH SCH (10:17)
[2017-11-10] MEDS ORDERED: *HR* Warfarin 2.5 MG TABLET PO ONE (18:00)
[2017-11-10] MEDS: traZODone 50 MG TABLET PO SCH (20:07)
[2017-11-11] MEDS: *HR* LORazepam 0.5 MG TABLET PO PRN ×3 (03:27→21:55)
[2017-11-11 03:53] LABS: Hematocrit 28.6 % (35.3-44.9); Hemoglobin 9.3 g/dL (11.5-15.4); Mean Corpuscular HGB Conc 32.5 g/dL (31.6-35.5); Mean Corpuscular Hemoglobin 27.8 pg (28.0-33.3); Mean Corpuscular Volume 85.6 fL (83.0-100.0); Mean Platelet Volume 10.1 fL (9.4-12.4); Platelet Count 250 K/mcL (140-400); Red Blood Count 3.34 M/mcL (3.82-4.97); Red Cell Distribution Width 15.6 % (11.5-14.5)
[2017-11-11 03:54] LABS: INR 2.1; Prothrombin Time 23.3 Seconds (9.4-12.1)
[2017-11-11] MEDS: Ipratropium/Albuterol Neb 3 ML IH SCH ×5 (04:16→20:33)
[2017-11-11 05:04] LABS: Calcium 8.4 mg/dL (8.6-10.3); Magnesium 1.8 mg/dL (1.6-2.6); Potassium 3.9 mEq/L (3.5-5.1)
[2017-11-11] MEDS: Insulin LISPRO 300 UNITS/3 ML VIAL SQ SCH ×4 (08:16→22:08)
[2017-11-11] MEDS: Metoprolol XL (24 HR) Succ 25 MG TAB.ER.24H PO SCH ×2 (08:44→19:53)
[2017-11-11] MEDS: Loratadine 10 MG TABLET PO SCH (08:44)
[2017-11-11] MEDS: Isosorbide MONOnitrate (24 HR) 60 MG TAB.ER.24H PO SCH (08:44)
[2017-11-11] MEDS: Sennosides/Docusate Sodium TABLET PO SCH ×2 (08:44→19:51)
[2017-11-11] MEDS: Benzonatate 100 MG CAPSULE PO SCH ×3 (08:44→19:51)
[2017-11-11] MEDS: predniSONE 20 MG TABLET PO SCH (08:44)
--- NOTE | 2017-11-11 08:53 | Internal Med Progress Note ---
<SteveNabeel Freitas - Last Filed: 11/11/17 14:39> Date of Encounter: 11/11/17 Time of Encounter: 08:53 - Assessment and plan (1) Atrial fibrillation Current Visit: Yes Status: Acute Assessment and plan: Mrs. Horne has a history of proximal atrial fibrillation with a reported initial diagnosis 8 year ago, for which she is on Coumadin daily. She is found to be in rapid ventricular rate at [facility] ED and started on a Cardizem drip. She has since been weaned off her Cardizem drip and currently on Toprol-XL 50 mg by mouth twice a day - Suspected initiating factor is NSTEMI for which she has declined left heart catheterization. - Currently rate controlled - Patient also cardiac paced with recent pacemaker placement. Appears to have low settings as her heart rate is between 49 and 55 Plan: - Continue metoprolol XL 50 mg by mouth twice a day - Continue Coumadin with INR goal of 2-3 - Continue cardiac monitoring inpatient. Qualifiers: Atrial fibrillation type: paroxysmal Qualified Code(s): I48.0 - Paroxysmal atrial fibrillation (2) Coronary artery disease Current Visit: Yes Status: Chronic Assessment and plan: Chronic issue. Hx of CAD s/p CABG. Patient reports PCI (4 total LHC) between Jul- at [facility] and [place]. - Echo cardiogram demonstrates LVEF 60%, indeterminate diastolic dysfunction, normal right ventricular structure and function, mild mitral regurgitation, mild pulmonary regurgitation, no pulmonary hypertension Plan: - Continue to optimize cardiac medications with Asa, statin, betablocker. Qualifiers: Coronary Disease-Associated Artery/Lesion type: [place] artery [place] vs. transplanted heart: [place] heart Associated angina: without angina Qualified Code(s): I25.10 - Atherosclerotic heart disease of [place] coronary artery without angina pectoris (3) Diabetes mellitus Current Visit: Yes Status: Chronic Assessment and plan: Type II diabetic current glucoses moderately managed. Likely exacerbated with steroids. Plan: - Continue sliding scale insulin - Before meals at bedtime glucose checks Qualifiers: Diabetes mellitus type: type 2 Diabetes mellitus complication status: with kidney complications Diabetes mellitus complication detail: with chronic kidney disease Diabetes mellitus nursing home insulin use: without nursing home use Chronic kidney disease stage: stage 3 (moderate) Qualified Code(s): E11.22 - Type 2 diabetes mellitus with diabetic chronic kidney disease; N18.3 - Chronic kidney disease, stage 3 (moderate); N18.3 - Chronic kidney disease, stage 3 (moderate) (4) Essential hypertension Current Visit: Yes Status: Chronic Assessment and plan: Appears to be controlled. Continue meds. (5) COPD (chronic obstructive pulmonary disease) Current Visit: Yes Status: Acute Assessment and plan: Currently requiring increased oxygen requirements at 4 L nasal cannula to maintain oxygen saturations between 88-92%. Baseline oxygen requirements 2 L. Patient continues to smoke half a pack per day. Plan: - Continue scheduled duo nebs every 4 hours, will hold Spiriva - Continue IV Solu-Medrol 60 mg IV every 8 hours - Continue montelukast 10 mg by mouth every afternoon - Symbicort twice a day Qualifiers: COPD type: COPD with acute exacerbation Qualified Code(s): J44.1 - Chronic obstructive pulmonary disease with (acute) exacerbation (6) NSTEMI (non-ST elevated myocardial infarction) Current Visit: Yes Status: Acute Assessment and plan: Pt refusing cardiac cath and elects for medical management. - Continues to be asymptomatic. Plan: - Continue beta law, statin, ASA, Imdur, Plavix (7) Tobacco abuse Current Visit: Yes Status: Chronic Assessment and plan: Cessation counselling. (8) Diastolic heart failure Current Visit: Yes Status: Acute Assessment and plan: Ms. Horne resents with worsening shortness of breath, increased oxygen requirements, BNP greater than 1000. - Echocardiogram as discussed above Plan: - Gentle diuresis in the setting of acute on chronic kidney disease. Qualifiers: Heart failure chronicity: acute Qualified Code(s): I50.31 - Acute diastolic (congestive) heart failure (9) Hyponatremia Current Visit: Yes Status: Acute Assessment and plan: Sodium 1:30 decrease from 137 likely secondary from volume and steroids, also diastolic heart failure exacerbation contributing. Plan: - Gentle diuresis - Adjust any free water or D5W in medications. (10) DVT prophylaxis Current Visit: Yes Status: Acute Assessment and plan: Patient's therapeutic on warfarin. - Subjective Interval history: Mrs. Horne 77-year-old female has been seen and evaluated patient bedside this morning. She is alert awake interactive no acute distress. She does have some mild shortness of breath even with her nasal cannula oxygen and is having difficulty coughing up phlegm. She states that is difficult to cough up phlegm when laying flat. I did advise her to sit in the chair at bedside and using a spirometer to help move secretions out of her lungs. She is tolerating oral intake she is voiding appropriately. No other concerns or complaints at this time. - Constitutional Vitals: Temp Pulse Resp BP Pulse Ox 97.5 F L 49 18 139/65 97 11/11/17 07:09 11/11/17 07:09 11/11/17 07:09 11/11/17 07:09 11/11/17 07:09 General appearance: Present: cooperative, A&O X 3, answers questions appropriately Exam: General: Patient alert, awake, oriented 3, interactive, in no acute distress HEENT: Normocephalic, atraumatic, pupils equal reactive to light, oral mucosa moist, neck supple trachea midline no palpable lymphadenopathy, no thyromegaly. Chest: Symmetric bilateral correlating with respiratory effort, effort nonlabored. Cardiac: Irregularly irregular heart rate and rhythm,. no bruits appreciated bilateral carotids, Radial pulses 2+ bilateral, posterior tibial and dorsal pedal pulses 2+ bilateral. Respiratory: Diminished breath sounds with inspiratory and expiratory effort. Diffuse wheezing. Abdomen: Soft, nontender, positive bowel sounds, no palpable masses appreciated on examination Extremities: Symmetric bilateral, left foot with some trace pedal edema, no edema in bilateral shins her right foot.,patient moving all 4 extremities spontaneously. Neurologic: No focal deficits appreciated on examination. Face symmetric, muscle strength symmetric bilateral upper and lower extremities. Internal Medicine: Result - Labs CBC & Chem 7: 11/11/17 03:05 11/11/17 03:05 Labs: Short CBC 11/11/17 Range/Units 03:05 WBC 13.4 H D (4.3-11.1) K/mcL Hgb 9.3 L (11.5-15.4) g/dL Hct 28.6 L (35.3-44.9) % Plt Count 250 (140-400) K/mcL BMP 11/11/17 03:05 Sodium 130 L Potassium 3.9 Chloride 97 L Carbon Dioxide 27 BUN 46 H Creatinine 1.48 H Glucose 128 H Calcium 8.4 L - ABG Interpretation ABG results: PT/INR, D-dimer PT 23.3 Seconds (9.4-12.1) H 11/11/17 03:05 - VTE Reasons for not Prescribing Prophylaxis: Not indicated-Anticoagulated or INR therapeutic Documentation of Mechanical Device: Intermittent pneumatic compression device Consult Discharge Plan - Plan Referrals: Richie Rankin [Primary Care Provider] - 11/25/17 11:15 am <Antonio Ohara - Last Filed: 11/11/17 17:27> Date of Encounter: 11/11/17 - Assessment and plan (1) NSTEMI (non-ST elevated myocardial infarction) Current Visit: Yes Status: Acute (2) Atrial fibrillation Current Visit: Yes Status: Acute Qualifiers: Atrial fibrillation type: paroxysmal Qualified Code(s): I48.0 - Paroxysmal atrial fibrillation (3) COPD (chronic obstructive pulmonary disease) Current Visit: Yes Status: Acute Qualifiers: COPD type: COPD with acute exacerbation Qualified Code(s): J44.1 - Chronic obstructive pulmonary disease with (acute) exacerbation (4) Anxiety about health Current Visit: Yes Status: Acute (5) Diabetes mellitus Current Visit: Yes Status: Chronic Qualifiers: Diabetes mellitus type: type 2 Diabetes mellitus complication status: with kidney complications Diabetes mellitus complication detail: with chronic kidney disease Diabetes mellitus nursing home insulin use: without nursing home use Chronic kidney disease stage: stage 3 (moderate) Qualified Code(s): E11.22 - Type 2 diabetes mellitus with diabetic chronic kidney disease; N18.3 - Chronic kidney disease, stage 3 (moderate); N18.3 - Chronic kidney disease, stage 3 (moderate) (6) Essential hypertension Current Visit: Yes Status: Chronic (7) Tobacco abuse Current Visit: Yes Status: Chronic (8) Coronary artery disease Current Visit: Yes Status: Chronic Qualifiers: Coronary Disease-Associated Artery/Lesion type: [place] artery [place] vs. transplanted heart: [place] heart Associated angina: without angina Qualified Code(s): I25.10 - Atherosclerotic heart disease of [place] coronary artery without angina pectoris (9) Diastolic heart failure Current Visit: Yes Status: Acute Qualifiers: Heart failure chronicity: acute on chronic Qualified Code(s): I50.33 - Acute on chronic diastolic (congestive) heart failure - Constitutional Vitals: Temp Pulse Resp BP Pulse Ox 97.6 F 59 18 149/60 94 11/11/17 15:51 11/11/17 15:51 11/11/17 16:27 11/11/17 15:51 11/11/17 16:27 Internal Medicine: Result - Labs CBC & Chem 7: 01/29/18 03:05 11/11/17 03:05 Labs: Short CBC 11/11/17 Range/Units 03:05 WBC 13.4 H D (4.3-11.1) K/mcL Hgb 9.3 L (11.5-15.4) g/dL Hct 28.6 L (35.3-44.9) % Plt Count 250 (140-400) K/mcL BMP 11/11/17 03:05 Sodium 130 L Potassium 3.9 Chloride 97 L Carbon Dioxide 27 BUN 46 H Creatinine 1.48 H Glucose 128 H Calcium 8.4 L - ABG Interpretation ABG results: PT/INR, D-dimer PT 23.3 Seconds (9.4-12.1) H 11/11/17 03:05 - Impressions Impressions Echocardiogram 11/10/17 11:39 Impressions: LVEF 60%. Indeterminate diastolic function. Normal right ventricular structure and function. Mild mitral regurgitation. Mild pulmonic regurgitation. No pulmonary hypertension. Left Ventricular Wall Motion: Rest Echo Findings All wall segments showed normal motion. Findings: Study Quality * Study stopped prematurely at request of patient. Subcostal and SSN images not obtained. ECG Findings * Normal sinus rhythm. Left Ventricle * LVEF 60%. * Indeterminate diastolic function. * Normal LV size. * Wall thickness measurements are normal. Right Ventricle * Normal right ventricular structure and function. Left Atrium * Moderately dilated left atrium. Right Atrium * Normal right atrial size. Mitral Valve * Normal mitral valve structure. * No mitral stenosis. * Mild mitral annular calcification * Mild mitral regurgitation. Aortic Valve * No aortic regurgitation. * No aortic stenosis. * Aortic valve not well visualized. Tricuspid Valve * Tricuspid valve not well visualized. * Trace tricuspid regurgitation. * Estimated RA pressure is 3 mmHg. * Estimated RVSP is 16 mmHg. * No pulmonary hypertension. Pulmonic Valve * Pulmonic valve is not well visualized. * No pulmonic stenosis. * Mild pulmonic regurgitation. Pulmonary Artery * Pulmonary artery not well visualized. Aorta * Not well visualized. Pericardium * There is no pericardial effusion present. Device lead * A device lead was visualized in the right atrium and right ventricle. Interatrial Septum * Interatrial septum not well evaluated. IVC * The IVC is not well evaluated. Chest X-Ray 11/11/17 11:22 IMPRESSION: 1. Chronic interstitial lung changes with no new focal consolidation. D/ / 11/11/2017 13:09:37 Pancho Tobar MD / thu Interpreting Provider: Pancho Tobar MD - Attending Attestation I examined this patient and my medical decision-making was reviewed with the Resident Physician on 11/11/17. I agree with the documented findings, disposition and treatment plan as described except to the extent set forth below. Ms Horne is currently admitted for acute NSTEMI as well rapid a fib. She remains moderate to high risk due to potential for worsening clinical status. Ms Horne is feeling tired at this time. She slept better last night. She appears to be wheezing more at this time. No fever. Some congestion. Exam alert. Mild distress - tired Mucus membranes dry Heart irreg - paced beats noted Lungs with diffuse end exp wheeze Abd soft. Some pedal edema noted. I/P 1. NSTEMI 2. Acute on chronic diastolic heart failure 3. COPD 4. A fib Further diagnoses and plan as above.
[2017-11-11] MEDS: *HR* HYDROcodone/Acet 5/325 mg TABLET PO PRN ×2 (10:19→17:23)
--- NOTE | 2017-11-11 10:20 | Cardiology Progress Note ---
Date of Encounter: 11/11/17 Time of Encounter: 10:13 Assessment and Plan (1) NSTEMI (non-ST elevated myocardial infarction) Current Visit: Yes Status: Acute Troponin peaked at 4.68. Ischemic ECG changes. Patient reports typical chest pain symptoms prior to admission, now pain free. 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 Records ordered from [facility] and [place]. No heparin gtt due to therapeutic INR. Patient not a candidate for cardiac rehab at this time. Continue plavix, nitrates, statin, and betablocker. Imdur increased and she denies recurrent symptoms. TTE pending . (2) Atrial fibrillation Current Visit: Yes Status: Acute Hx of paroxysmal atrial fibrillation, pt reports was diagnosed 8 years ago. On coumadin for AC. Episode of RVR at [facility] ED . Patient initially started on cardizem gtt (now d/ c'ed). NSR upon exam,with occasional ventricular pacing, BP stable. Toprol XL increased to 50 mg BID. Avg HR 58 bpm (paced). Lowest HR 58 bpm. No pauses. No recurrent RVR seen overnight. Goal INR 2-3, recommend pharmacy to dose as inpt. INR 2.1 today. Continue coumadin for now as patient is declining [facility]. Qualifiers: Atrial fibrillation type: paroxysmal Qualified Code(s): I48.0 - Paroxysmal atrial fibrillation (3) Coronary artery disease Current Visit: Yes Status: Chronic Hx of CAD s/p CABG. Patient reports PCI (4 total LHC) between Jul- at [facility] and [place]. Request records. Asa, statin, betablocker. Qualifiers: Coronary Disease-Associated Artery/Lesion type: [place] artery [place] vs. transplanted heart: [place] heart Associated angina: without angina Qualified Code(s): I25.10 - Atherosclerotic heart disease of [place] coronary artery without angina pectoris (4) Pacemaker Current Visit: Yes Status: Acute Reports PPM placed one month ago. Noted to be ventricular paced at time. Records ordered. Discussion w patient/family: The assessment and plan as outlined above was discussed with the patient and/or family members who expressed understanding and agreement. All questions were answered. Thank you for involving us in the care of your patient. Please call with any questions. Subjective Principal diagnosis: NSTEMI Interval history: Ms. Horne is sitting on the side of the bed, denies chest pain. Denies dizziness or lightheadedness. As of note patient very poor historian. Objective Vital Signs, Last 4 Hours Temp Pulse Resp BP Pulse Ox 11/11/17 07:09 97.5 F L 49 18 139/65 97 General: Conversant, No Apparent Distress HEENT: Atraumatic, Normocephaly, Mucus Membranes Moist Neck: No JVD, Normal carotid pulses Cardiac: Other (Apical irregular. ) Lungs: Normal Breath Sounds, No Wheeze, Rales, Rhonchi Neuro: Alert and responsive, No focal deficits noted Abdomen: Soft, Non-Tender Skin: No rashes noted on visualized skin Musculoskeletal: No Chest Wall Tenderness Extremities: No Clubbing, No Cyanosis, No Edema, Normal Pulses Results 11/11/17 03:05 11/11/17 03:05 Lab Results 11/11/17 11/11/17 11/11/17 03:05 03:05 03:05 WBC 13.4 H D Hgb 9.3 L Hct 28.6 L Plt Count 250 INR 2.1 Sodium 130 L Potassium 3.9 Chloride 97 L Carbon Dioxide 27 BUN 46 H Creatinine 1.48 H Glucose 128 H Calcium 8.4 L Magnesium 1.8 - EKG Interpretation EKG results cardiology: personally reviewed - VTE Reasons for not Prescribing Prophylaxis: Not indicated-Anticoagulated or INR therapeutic Documentation of Mechanical Device: Intermittent pneumatic compression device Consult Discharge Plan - Plan Referrals: Richie Rankin [Primary Care Provider] - 11/25/17 11:15 am
[2017-11-11] MEDS: Tiotropium 18 MCG inhalation IH SCH (10:32)
[2017-11-11] MEDS: methylPREDNISolone 125 MG/2 ML VIAL IVP SCH (15:40)
[2017-11-11] MEDS: Budesonide/Formoterol 160/4.5 MDI IH SCH ×2 (16:26→20:33)
[2017-11-11] MEDS: Melatonin 3 MG TABLET PO PRN (19:51)
[2017-11-11] MEDS: traZODone 50 MG TABLET PO SCH (19:52)
[2017-11-12] MEDS: methylPREDNISolone 125 MG/2 ML VIAL IVP SCH ×2 (00:04→08:21)
[2017-11-12] MEDS: Ipratropium/Albuterol Neb 3 ML IH SCH ×5 (00:47→16:14)
[2017-11-12] MEDS: *HR* HYDROcodone/Acet 5/325 mg TABLET PO PRN ×2 (04:16→10:24)
[2017-11-12 07:18] LABS: Hematocrit 27.9 % (35.3-44.9); Hemoglobin 9.1 g/dL (11.5-15.4); Lymphocytes % 8.8 %; Mean Corpuscular HGB Conc 32.6 g/dL (31.6-35.5); Mean Corpuscular Volume 85.8 fL (83.0-100.0); Mean Platelet Volume 10.4 fL (9.4-12.4); Monocytes # 0.3 K/mcL (0.0-1.3); Monocytes % 2.2 %; Neutrophils # 10.2 K/mcL (1.6-8.9); Platelet Count 234 K/mcL (140-400); Red Blood Count 3.25 M/mcL (3.82-4.97); Red Cell Distribution Width 15.7 % (11.5-14.5)
[2017-11-12 07:19] LABS: INR 2.3; Prothrombin Time 24.8 Seconds (9.4-12.1)
[2017-11-12 07:37] LABS: Albumin 2.9 g/dL (3.5-5.7); Albumin/Globulin Ratio 1.4 (1.1-2.2); Bilirubin,Total 0.4 mg/dL (0.3-1.0); Calcium 8.8 mg/dL (8.6-10.3); Globulin 2.1 g/dL (2.4-3.5); Potassium 4.4 mEq/L (3.5-5.1)
[2017-11-12] MEDS: Budesonide/Formoterol 160/4.5 MDI IH SCH (08:07)
[2017-11-12] MEDS: Metoprolol XL (24 HR) Succ 25 MG TAB.ER.24H PO SCH (08:19)
[2017-11-12] MEDS: Sennosides/Docusate Sodium TABLET PO SCH ×2 (08:20→17:01)
[2017-11-12] MEDS: Isosorbide MONOnitrate (24 HR) 60 MG TAB.ER.24H PO SCH (08:20)
[2017-11-12] MEDS: Benzonatate 100 MG CAPSULE PO SCH ×2 (08:20→17:02)
[2017-11-12] MEDS: Loratadine 10 MG TABLET PO SCH (08:20)
[2017-11-12] MEDS: *HR* LORazepam 0.5 MG TABLET PO PRN ×2 (08:20→17:01)
[2017-11-12] MEDS: Insulin LISPRO 300 UNITS/3 ML VIAL SQ SCH ×2 (08:21→12:13)
[2017-11-12] MEDS ORDERED: GuaiFENesin Liq 200 MG/10 ML UDC PO PRN (10:33)
[2017-11-12] MEDS ORDERED: amLODIPine 5 MG TABLET PO SCH (12:15)
--- NOTE | 2017-11-12 12:24 | Discharge Summary ---
Date of Encounter: 11/12/17 Time of Encounter: 12:17 - Discharge Diagnosis (1) COPD exacerbation Priority: Primary Status: Acute (2) Atrial fibrillation Priority: Secondary Status: Acute Qualifiers: Atrial fibrillation type: paroxysmal Qualified Code(s): I48.0 - Paroxysmal atrial fibrillation (3) Coronary artery disease Priority: Secondary Status: Chronic Qualifiers: Coronary Disease-Associated Artery/Lesion type: [place] artery [place] vs. transplanted heart: [place] heart Associated angina: without angina Qualified Code(s): I25.10 - Atherosclerotic heart disease of [place] coronary artery without angina pectoris (4) Diabetes mellitus Priority: Secondary Status: Chronic Qualifiers: Diabetes mellitus type: type 2 Diabetes mellitus complication status: with kidney complications Diabetes mellitus complication detail: with chronic kidney disease Diabetes mellitus intermediate frame tender insulin use: without chcf use Chronic kidney disease stage: stage 3 (moderate) Qualified Code(s): E11.22 - Type 2 diabetes mellitus with diabetic chronic kidney disease; N18.3 - Chronic kidney disease, stage 3 (moderate); N18.3 - Chronic kidney disease, stage 3 (moderate) (5) Essential hypertension Priority: Secondary Status: Chronic (6) NSTEMI (non-ST elevated myocardial infarction) Priority: Primary Status: Acute - Discharge Medications Prescriptions: GuaiFENesin Liq [Robitussin Liq] 200 mg PO Q6HR PRN #15 udc PRN Reason: Cough hydrALAZINE [HydrALAZINE] 25 mg PO Q8HR #90 tablet amLODIPine [Norvasc] 5 mg PO DAILY #30 tablet Isosorbide MONOnitrate (24 HR) [Imdur] 60 mg PO DAILY #60 tab.er.24h LORazepam [Ativan] 0.5 mg PO TID PRN 5 Days #15 tablet PRN Reason: Anxiety Metoprolol XL (24 HR) Succ [Toprol Xl] 50 mg PO BID #60 tab.er.24h predniSONE [PredniSONE] See Taper PO TAPER #39 tablet Home Medications: Atorvastatin [Lipitor] 40 mg PO DAILY 11/09/17 [History] Benzonatate [Tessalon] 100 mg PO TID PRN 11/09/17 [History] Clopidogrel [Plavix] 75 mg PO DAILY 11/09/17 [History] Dicyclomine [Bentyl] 10 mg PO QID 11/09/17 [History] Esomeprazole Magnesium [Nexium 24Hr] 40 mg PO DAILY 11/09/17 [History] Ferrous Sulfate [Iron] 325 mg PO DAILY 11/09/17 [History] Fluticasone Propionate Nasal [Flonase] 1 spr NS DAILY 11/09/17 [History] Fluticasone Propionate [Flovent Diskus] 1 puff IH BID 11/09/17 [History] Furosemide [Lasix] 40 mg PO DAILY 11/09/17 [History] HYDROcodone/Acet 5/325 mg [[place] 5-325 mg] 1 tab PO BID PRN 11/09/17 [History] Ipratropium/Albuterol Neb [Duoneb] 3 ml IH Q6HR 11/09/17 [History] Loratadine [Allergy Relief] 10 mg PO DAILY 11/09/17 [History] Metformin HCl [Fortamet] 500 mg PO BID 11/09/17 [History] Montelukast [Singulair] 10 mg PO DAILY 11/09/17 [History] Nitroglycerin [Nitrostat] 0.4 mg SL Q5M PRN 11/09/17 [History] Roflumilast [Daliresp] 500 mcg PO DAILY 11/09/17 [History] Tiotropium [Spiriva] 18 mcg IH DAILY 11/09/17 [History] Warfarin [Coumadin] 2.5 mg PO MOTUWEFRSA 11/09/17 [History] Warfarin [Coumadin] 5 mg PO SUTH 11/09/17 [History] GuaiFENesin Liq [Robitussin Liq] 200 mg PO Q6HR PRN #15 udc 11/12/17 [Rx] Isosorbide MONOnitrate (24 HR) [Imdur] 60 mg PO DAILY #60 tab.er.24h 11/12/17 [ Rx] LORazepam [Ativan] 0.5 mg PO TID PRN 5 Days #15 tablet 11/12/17 [Rx] Metoprolol XL (24 HR) Succ [Toprol Xl] 50 mg PO BID #60 tab.er.24h 11/12/17 [Rx] amLODIPine [Norvasc] 5 mg PO DAILY #30 tablet 11/12/17 [Rx] hydrALAZINE [HydrALAZINE] 25 mg PO Q8HR #90 tablet 11/12/17 [Rx] predniSONE [PredniSONE] See Taper PO TAPER #39 tablet 11/12/17 [Rx] Allergies/Adverse Reactions: 3 Allergy/AdvReac Type Severity Reaction Status Date / Time azithromycin [From Zithromax] Allergy Anaphylaxis Verified 11/09/17 13:41 glimepiride Allergy Confusion Verified 11/09/17 13:41 lidocaine [From Lidoderm] Allergy unknown Verified 11/09/17 13:41 Macrolide Antibiotics Allergy unknown Verified 11/09/17 13:41 Sulfa (Sulfonamide Allergy unknown Verified 11/09/17 13:41 Antibiotics) clindamycin AdvReac edema Verified 11/09/17 13:41 fluticasone AdvReac Palpitation Verified 11/09/17 13:41 [From Advair Diskus] s salmeterol AdvReac Palpitation Verified 11/09/17 13:41 [From Advair Diskus] s Procedures/tests Complete & Pending: Procedures Performed prior 72 hours Category Date Time Status ECG 12 lead ECG [ECG] Routine Y 11/09/17 21:39 Completed EV echocardiogram Routine Y 11/10/17 11:39 Completed Date of admission: 11/09/17 12:45 Primary care physician: Richie Rankin Consults: 11/09/17 04:42 Consult to Cardiology [CONS] Routine Comment: Consulting Provider: Cardiology Elin Reason for Consult: NSTEMI Call Completed: Yes - Patient Status Disposition: Home, Self-Care Condition: Fair Overall status at discharge: patient is progressing back to baseline - Discharge Instructions Follow Up With: Richie Rankin [Primary Care Provider] - 11/25/17 11:15 am - Diet and Activity Activity: increase activity as tolerated, wear oxygen at all times Diet: diabetic diet, low salt diet Hospital course: Ms. Horne is a 77 year old female with history of diabetes mellitus, coronary artery disease status post CABG, atrial fibrillation, hypertension, COPD, presented to the ER at [facility] complaining of chest pain. She also was having palpitations associated with it. She describes the pain as central in location and radiating up her jaw and to both her arms. In the ER she was noted to be in atrial fibrillation with rapid ventricular response. She was given Cardizem intravenously and then started on Cardizem drip with improvement in her heart rate. This also seemed to ease her pain. Troponins on initial admission was 0.085 and trended up to 4.68 with some ischemic changes on EKG. Because of that cardiology was consulted. They did not start on heparin drip given the fact that she was on Coumadin was therapeutic. They did check an echocardiogram which showed an EF of 60% with normal right ventricular structure and function. There was mild mitral regurgitation. Cardiology did discuss left heart catheter with patient however the patient was not interested at that time. Cardiology appointment with medical therapy. They continued the patient on Plavix, statin, Imdur and beta law. Aspirin was stopped to avoid triple therapy. 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 While hospitalized she was also treated for COPD exacerbation with IV steroids. She was discharged on a prednisone taper. She was stable for discharge on 11/12/2017 - Time Spent with Patient Total time spent providing and/or coordinating discharge services: Greater than 30 minutes - Constitutional Vitals: Temp Pulse Resp BP Pulse Ox 97.6 F 50 17 174/85 94 11/12/17 11:30 11/12/17 11:30 11/12/17 11:30 11/12/17 11:30 11/12/17 11:30 General appearance: Present: cooperative, A&O X 3, answers questions appropriately Exam: GEN: NAD CVS: RRR. S1, S2, No m/r/g RESP: CTAB ABD: Soft, NT, ND, +BS EXT: No edema. 2+ DP. No rashes NEURO: Nonfocal - VTE Reasons for not Prescribing Prophylaxis: Not indicated-Anticoagulated or INR therapeutic Documentation of Mechanical Device: Intermittent pneumatic compression device
[2017-11-12] MEDS: hydrALAZINE 25 MG TABLET PO SCH (13:01)
--- NOTE | 2017-11-12 13:06 | Physician Discharge Referral ---
- Diagnosis (1) COPD exacerbation Priority: Primary Status: Acute (2) Atrial fibrillation Priority: Primary Status: Acute (3) Coronary artery disease Priority: Secondary Status: Chronic (4) Diabetes mellitus Priority: Secondary Status: Chronic (5) Essential hypertension Priority: Secondary Status: Chronic (6) NSTEMI (non-ST elevated myocardial infarction) Priority: Primary Status: Acute - Respiratory Orders Smoking Cessation: Smoking cessation has been advised. For more information, call the [place] Tobacco Quit Line at 0-139-LJGY-NOW. - Diet/Nutrition Diet/Nutrition Orders: Cardiac - Services Needed Following services are medically necessary services: Nursing, Home Health Aide, Physical Therapy, Occupational Therapy - Transfer Medications Prescriptions: GuaiFENesin Liq [Robitussin Liq] 200 mg PO Q6HR PRN #15 udc PRN Reason: Cough hydrALAZINE [HydrALAZINE] 25 mg PO Q8HR #90 tablet amLODIPine [Norvasc] 5 mg PO DAILY #30 tablet Isosorbide MONOnitrate (24 HR) [Imdur] 60 mg PO DAILY #60 tab.er.24h Metoprolol XL (24 HR) Succ [Toprol Xl] 50 mg PO BID #60 tab.er.24h predniSONE [PredniSONE] See Taper PO TAPER #39 tablet Home Medications: Atorvastatin [Lipitor] 40 mg PO DAILY 11/09/17 [History] Benzonatate [Tessalon] 100 mg PO TID PRN 11/09/17 [History] Clopidogrel [Plavix] 75 mg PO DAILY 11/09/17 [History] Dicyclomine [Bentyl] 10 mg PO QID 11/09/17 [History] Esomeprazole Magnesium [Nexium 24Hr] 40 mg PO DAILY 11/09/17 [History] Ferrous Sulfate [Iron] 325 mg PO DAILY 11/09/17 [History] Fluticasone Propionate Nasal [Flonase] 1 spr NS DAILY 11/09/17 [History] Fluticasone Propionate [Flovent Diskus] 1 puff IH BID 11/09/17 [History] Furosemide [Lasix] 40 mg PO DAILY 11/09/17 [History] HYDROcodone/Acet 5/325 mg [[place] 5-325 mg] 1 tab PO BID PRN 11/09/17 [History] Ipratropium/Albuterol Neb [Duoneb] 3 ml IH Q6HR 11/09/17 [History] Loratadine [Allergy Relief] 10 mg PO DAILY 11/09/17 [History] Metformin HCl [Fortamet] 500 mg PO BID 11/09/17 [History] Montelukast [Singulair] 10 mg PO DAILY 11/09/17 [History] Nitroglycerin [Nitrostat] 0.4 mg SL Q5M PRN 11/09/17 [History] Roflumilast [Daliresp] 500 mcg PO DAILY 11/09/17 [History] Tiotropium [Spiriva] 18 mcg IH DAILY 11/09/17 [History] Warfarin [Coumadin] 2.5 mg PO MOTUWEFRSA 11/09/17 [History] Warfarin [Coumadin] 5 mg PO SUTH 11/09/17 [History] GuaiFENesin Liq [Robitussin Liq] 200 mg PO Q6HR PRN #15 udc 11/12/17 [Rx] Isosorbide MONOnitrate (24 HR) [Imdur] 60 mg PO DAILY #60 tab.er.24h 11/12/17 [ Rx] Metoprolol XL (24 HR) Succ [Toprol Xl] 50 mg PO BID #60 tab.er.24h 11/12/17 [Rx] amLODIPine [Norvasc] 5 mg PO DAILY #30 tablet 11/12/17 [Rx] hydrALAZINE [HydrALAZINE] 25 mg PO Q8HR #90 tablet 11/12/17 [Rx] predniSONE [PredniSONE] See Taper PO TAPER #39 tablet 11/12/17 [Rx] Allergies/Adverse Reactions: 3 Allergy/AdvReac Type Severity Reaction Status Date / Time azithromycin [From Zithromax] Allergy Anaphylaxis Verified 11/09/17 13:41 glimepiride Allergy Confusion Verified 11/09/17 13:41 lidocaine [From Lidoderm] Allergy unknown Verified 11/09/17 13:41 Macrolide Antibiotics Allergy unknown Verified 11/09/17 13:41 Sulfa (Sulfonamide Allergy unknown Verified 11/09/17 13:41 Antibiotics) clindamycin AdvReac edema Verified 11/09/17 13:41 fluticasone AdvReac Palpitation Verified 11/09/17 13:41 [From Advair Diskus] s salmeterol AdvReac Palpitation Verified 11/09/17 13:41 [From Kobe Barrios] nancy Certification: Further, I certify that my clinical findings support that this patient is homebound (i.e. absences from home require considerable and taxing effort and are for medical reasons or druze services or infrequently or short duration when for other reasons) because: Homebound Reason: Patient requires assistance of a person or device to safely leave home Attestation: My signature below is to certify that this patient is under my care and that I, or nurse practitioner, or a physician's pastoral assistant working with me, has a face-to -face encounter with this patient.
[2017-11-12 14:24] VITALS: BP 158/65
--- NOTE | 2017-11-12 17:19 | Electrocardiograph Report ---
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
[2017-11-12] MEDS ORDERED: *HR* Warfarin 2.5 MG TABLET PO ONE (18:00)
[2017-11-13] MEDS ORDERED: predniSONE 20 MG TABLET PO SCH (09:00)
== END 2017-11-12 18:12 | disposition home or self-care (01) | DRG 280 ==
LOC: 2NENU → 2NNU 23:20
PROVIDERS: ADMIT Internal Medicine; ATTEND Internal Medicine